=== PATIENT | male | born 1965 | race Caucasian/White ===

== ENCOUNTER 2016-11-18 15:47 | Observation (INO) | payer MEDICAID ==
[2016-11-18] MEDS ORDERED: Bacitracin Oint 1 GM U/D Packet TOP ONE (16:59)
[2016-11-18] MEDS ORDERED: cefTRIAXone 1 GM in Sodium Chloride 0.9% 50 ML IV ONE (18:07)
[2016-11-18] MEDS ORDERED: HYDROmorphone 0.5 MG/0.5 ML Syringe IVPUSH ONE (18:07)
--- NOTE | 2016-11-18 18:44 | EDM.PDOC ---
ED HPI GENERAL MEDICAL PROBLEM - General Chief Complaint: Laceration Stated Complaint: HEAD INJURY Time Seen by Provider: 11/18/16 16:10 Source of Information: Reports: Patient, Family History Limitations: Reports: No Limitations - History of Present Illness INITIAL COMMENTS - FREE TEXT/NARRATIVE: 51-year-old male got struck hard on the forehead by a a volleyball pole while he was mowing the lawn. He has a stellate laceration in the middle of his forehead, did not lose consciousness but feels a pressure behind his eyes, especially the left eye. He feels like he has to work to "focus his vision". He does not have pain with movement of the eyes. He has no nausea or vomiting. He is starting to develop some neck stiffness. He has no injuries to the chest abdomen or extremities. Onset: Sudden Duration: Hour(s): (Within the last hour) Severity: Moderate Associated Symptoms: Reports: Headaches. Denies: Confusion, Cough, Malaise, Nausea/Vomiting, Shortness of Breath, Weakness headache Pain Score (Numeric/FACES): 2 - Related Data Allergies Allergy/AdvReac Type Severity Reaction Status Date / Time Penicillins Allergy Hives Verified 11/18/16 16:04 Home Meds: Home Meds NK [No Known Home Meds] 11/18/16 [History] Past Medical History Cardiovascular History: Reports: Arrhythmia, Other (See Below) Other Cardiovascular History: hereditary paroxysmal "flutter" - Past Surgical History HEENT Surgical History: Reports: Tonsillectomy Musculoskeletal Surgical History: Reports: Shoulder Surgery, Other (See Below) Other Musculoskeletal Surgeries/Procedures:: knee repair Social & Family History - Tobacco Use Smoking Status *Q: Never Smoker - Caffeine Use Caffeine Use: Reports: Coffee - Alcohol Use Days Per Week of Alcohol Use: 1 Number of Drinks Per Day: 1 Total Drinks Per Week: 1 - Recreational Drug Use Recreational Drug Use: No ED ROS GENERAL - Review of Systems Review Of Systems: See Below Constitutional: Denies: Fever, Chills HEENT: Reports: Other (See HPI) Endocrine: Reports: No Symptoms GI/Abdominal: Denies: Nausea, Vomiting Musculoskeletal: Reports: Neck Pain Skin: Reports: Bruising (some bruising developing around the left eye, a stellate laceration on his forehead) Neurological: Reports: Headache Psychiatric: Reports: No Symptoms ED EXAM, SKIN/RASH Exam: See Below Exam Limited By: No Limitations General Appearance: Alert, No Apparent Distress Eye Exam: Left Eye: Periorbital Changes (Some ecchymosis developing around the left eye), Bilateral Eye: EOMI Ears: Normal TMs Nose: No: Nasal Tenderness Throat/Mouth: Normal Inspection Head: Other (Patient has a 4 cm stellate laceration in the middle of his forehead) Neck: Other (Some paracervical muscle tenderness is developing to palpation) Respiratory/Chest: No Respiratory Distress, Lungs Clear Cardiovascular: Regular Rate, Rhythm Extremities: Normal Inspection Neurological: Alert, Oriented, No Motor/Sensory Deficits Psychiatric: Normal Affect, Normal Mood Course - Vital Signs Last Recorded V/S: Last Vital Signs Temp 96.9 F 11/19/16 07:30 Pulse 56 L 11/19/16 07:30 Resp 14 11/19/16 07:30 BP 101/56 L 11/19/16 07:30 Pulse Ox 97 11/19/16 07:30 - Orders/Labs/Meds Orders: Active Orders 24 hr Category Date Time Status Soft Diet [DIET] Diet 11/18/16 Dinner Active Cervical Spine wo Cont [CT] Stat Exams 11/18/16 19:29 Taken Head wo Cont [CT] Stat Exams 11/18/16 16:21 Taken Max Facial Sinus wo Cont [CT] Stat Exams 11/18/16 16:21 Taken Sodium Chloride 0.9% [Normal Saline] 1,000 ml Med 11/18/16 18:15 Active IV ASDIRECTED Medication Orders Acetaminophen (Tylenol) 650 mg PO Q4H PRN PRN Reason: analgesia/fever Cyclobenzaprine HCl (Flexeril) 10 mg PO Q8H PRN PRN Reason: Muscle Spasm Diphenhydramine HCl (Benadryl) 25 mg PO Q4H PRN PRN Reason: Itching Hydromorphone HCl (Dilaudid) 1 mg IVPUSH Q2H PRN PRN Reason: Pain (severe 7-10) Last Admin: 11/19/16 10:13 Dose: 1 mg Admin: 11/18/16 22:50 Dose: 1 mg Sodium Chloride (Normal Saline) 1,000 mls @ 150 mls/hr IV ASDIRECTED NIRAV Last Admin: 11/19/16 07:46 Dose: 150 mls/hr Infusion: 11/19/16 07:46 Dose: 150 mls/hr Admin: 11/19/16 01:44 Dose: 150 mls/hr Infusion: 11/19/16 01:40 Dose: 150 mls/hr Admin: 11/18/16 18:59 Dose: 150 mls/hr Ceftriaxone Sodium 1 gm/ (Sodium Chloride) 50 mls @ 100 mls/hr IV Q24H NIRAV Oxycodone/Acetaminophen (Percocet 325-5 Mg) 1 - 2 tab PO Q4H PRN PRN Reason: Pain Last Admin: 11/18/16 21:55 Dose: 2 tab Zolpidem Tartrate (Ambien) 5 mg PO BEDTIME PRN PRN Reason: Insomnia Last Admin: 11/19/16 00:20 Dose: 5 mg Meds: Medications Generic Name Dose Route Start Last Admin Trade Name Freq PRN Reason Stop Dose Admin Acetaminophen 650 mg 11/18/16 20:39 Tylenol PO Q4H PRN analgesia/fever Cyclobenzaprine HCl 10 mg 11/18/16 20:39 Flexeril PO Q8H PRN Muscle Spasm Diphenhydramine HCl 25 mg 11/19/16 10:41 Benadryl PO Q4H PRN Itching Hydromorphone HCl 1 mg 11/18/16 20:39 11/19/16 10:13 Dilaudid IVPUSH 1 mg Q2H PRN Administration Pain (severe 7-10) Sodium Chloride 1,000 mls @ 150 mls/hr 11/18/16 18:15 11/19/16 07:46 Normal Saline IV 150 mls/hr ASDIRECTED NIRAV Administration Ceftriaxone Sodium 1 gm/ 50 mls @ 100 mls/hr 11/19/16 18:00 Sodium Chloride IV Q24H NIRAV Oxycodone/Acetaminophen 1 - 2 tab 11/18/16 20:39 11/18/16 21:55 Percocet 325-5 Mg PO 2 tab Q4H PRN Administration Pain Zolpidem Tartrate 5 mg 11/18/16 20:39 11/19/16 00:20 Ambien PO 5 mg BEDTIME PRN Administration Insomnia Discontinued Medications Generic Name Dose Route Start Last Admin Trade Name Freq PRN Reason Stop Dose Admin Bacitracin 1 dose 11/18/16 16:59 11/18/16 17:04 Bacitracin Oint 1 Gm TOP 11/18/16 17:00 1 dose ONETIME ONE Administration Diphenhydramine HCl Confirm 11/19/16 03:18 11/19/16 10:04 Benadryl Administered 11/19/16 03:19 Not Given Dose 25 mg .ROUTE .STK-MED ONE Hydromorphone HCl 0.5 mg 11/18/16 18:07 11/18/16 18:34 Dilaudid IVPUSH 11/18/16 18:08 0.5 mg ONETIME ONE Administration Hydromorphone HCl 1 mg 11/18/16 19:28 11/18/16 19:51 Dilaudid IVPUSH 11/18/16 19:29 1 mg ONETIME ONE Administration Ceftriaxone Sodium 1 gm/ 50 mls @ 100 mls/hr 11/18/16 18:07 11/18/16 18:35 Sodium Chloride IV 11/18/16 18:36 100 mls/hr ONETIME ONE Administration Lidocaine HCl 5 ml 11/18/16 16:59 11/18/16 17:04 Xylocaine-Mpf 1% INJECT 11/18/16 17:00 5 ml ONETIME ONE Administration Ondansetron HCl 4 mg 11/18/16 19:28 11/18/16 19:49 Zofran IVPUSH 11/18/16 19:29 4 mg ONETIME ONE Administration - Re-Assessments/Exams Free Text/Narrative Re-Assessment/Exam: 11/18/16 18:42 The laceration was infiltrated with lidocaine and 5 5-0 Ethilon sutures were used to close the wound. The head and facial bones were CT which revealed a frontal sinus fracture with extension into the frontal calvarium with a small amount of pneumocephalus. An IV was initiated, the patient was given 1 g of Rocephin and after discussion of his findings with neurosurgery it was recommended he be admitted for pain control and observation with a repeat CT scan tomorrow. Patient was in agreement with this plan. Departure - Departure Time of Disposition: 19:43 Disposition: Admitted As Inpatient 67 Condition: Fair Clinical Impression: Pneumocephalus, traumatic Laceration of forehead Qualifiers: Encounter type: initial encounter Qualified Code(s): S01.81XA - Laceration without foreign body of other part of head, initial encounter Frontal sinus fracture Qualifiers: Encounter type: initial encounter Fracture type: open Qualified Code(s): S02.19XB - Other fracture of base of skull, initial encounter for open fracture - Discharge Information - My Orders Last 24 Hours: My Active Orders 11/18/16 16:21 Head wo Cont [CT] Stat Max Facial Sinus wo Cont [CT] Stat 11/18/16 18:15 Sodium Chloride 0.9% [Normal Saline] 1,000 ml IV ASDIRECTED - Assessment/Plan Last 24 Hours: My Active Orders 11/18/16 16:21 Head wo Cont [CT] Stat Max Facial Sinus wo Cont [CT] Stat 11/18/16 18:15 Sodium Chloride 0.9% [Normal Saline] 1,000 ml IV ASDIRECTED
[2016-11-18] MEDS: Sodium Chloride 0.9% 1,000 ML IV SCH (18:59)
[2016-11-18] MEDS ORDERED: HYDROmorphone 1 MG/ML Syringe IVPUSH ONE (19:28)
[2016-11-18] MEDS ORDERED: Ondansetron 4 MG/2 ML SDV IVPUSH ONE (19:28)
[2016-11-18] MEDS ORDERED: Acetaminophen 325 MG Tab PO PRN (20:39)
[2016-11-18] MEDS ORDERED: Acetaminophen/oxyCODONE 325-5 MG Tab PO PRN (20:39)
[2016-11-18] MEDS ORDERED: Cyclobenzaprine 10 MG Tab PO PRN (20:39)
[2016-11-18] MEDS: HYDROmorphone 1 MG/ML Syringe IVPUSH PRN (22:50)
--- NOTE | 2016-11-18 23:49 | PCM.HP ---
H&P History of Present Illness - General Admit Problem/Dx: Admission Diagnosis/Problem Admission Diagnosis/Problem Fracture of bone Source of Information: Patient, EMS, RN History Limitations: Reports: No Limitations - History of Present Illness Initial Comments - Free Text/Narative: 51-year-old male got struck hard on the forehead by a a volleyball pole while he was mowing the lawn. He has a stellate laceration in the middle of his forehead, did not lose consciousness but feels a pressure behind his eyes, especially the left eye. He feels like he has to work to "focus his vision". He does not have pain with movement of the eyes. He has no nausea or vomiting. He is starting to develop some neck stiffness. He has no injuries to the chest abdomen or extremities. Onset: Sudden Duration: Hour(s): (Within the last hour) Severity: Moderate Associated Symptoms: Reports: Headaches. Denies: Confusion, Cough, Malaise, Nausea/Vomiting, Shortness of Breath, Weakness The laceration was infiltrated with lidocaine and 5 5-0 Ethilon sutures were used to close the wound. The head and facial bones were CT which revealed a frontal sinus fracture with extension into the frontal calvarium with a small amount of pneumocephalus. An IV was initiated, the patient was given 1 g of Rocephin and after discussion of his findings with neurosurgery it was recommended he be admitted for pain control and observation with a repeat CT scan tomorrow. Patient was in agreement with this plan. Onset of Symptoms: Reports: Sudden Duration of Symptoms: Reports: Hour(s):, Constant Location: Reports: Head, Face, Neck Quality: Reports: Sharp, Throbbing Severity: Moderate (pain controlled with IV dilaudid) Improves with: Reports: Medication Worsens with: Reports: Movement Context: Reports: Trauma Associated Symptoms: Reports: Headaches, Nausea/Vomiting headache Pain Score (Numeric/FACES): 4 - Related Data Allergies/Adverse Reactions: Allergies Allergy/AdvReac Type Severity Reaction Status Date / Time Penicillins Allergy Hives Verified 11/18/16 16:04 Home Medications: Home Meds NK [No Known Home Meds] 11/18/16 [History] Past Medical History Cardiovascular History: Reports: Arrhythmia, Other (See Below) Other Cardiovascular History: hereditary paroxysmal "flutter" - Infectious Disease History Infectious Disease History: Reports: Influenza - Past Surgical History HEENT Surgical History: Reports: Tonsillectomy Musculoskeletal Surgical History: Reports: Shoulder Surgery, Other (See Below) Other Musculoskeletal Surgeries/Procedures:: knee repair Social & Family History - Family History Cardiac: Reports: Arrhythmia Oncologic: Reports: Breast - Tobacco Use Smoking Status *Q: Never Smoker Second Hand Smoke Exposure: No - Caffeine Use Caffeine Use: Reports: Coffee, Soda, Tea - Alcohol Use Days Per Week of Alcohol Use: 2 Number of Drinks Per Day: 1 Total Drinks Per Week: 2 Date of Last Drink: 11/16/16 - Recreational Drug Use Recreational Drug Use: No H&P Review of Systems - Review of Systems: Review Of Systems: See Below General: Reports: Other (head and facial pain) HEENT: Reports: Eye Pain (left eye and cheek painful, bruising and edema), Headaches, Other (neck pain acute on chronic) Pulmonary: Reports: No Symptoms Cardiovascular: Reports: No Symptoms Gastrointestinal: Reports: Nausea (from head injury and pain) Genitourinary: Reports: No Symptoms Musculoskeletal: Reports: Neck Pain Skin: Reports: Bruising, Erythema, Change in Color Neurological: Reports: Headache Hematologic/Lymphatic: Reports: No Symptoms Immunologic: Reports: No Symptoms Exam - Exam Exam: See Below - Vital Signs Vital Signs: Last Vital Signs Temp 36.3 C 11/18/16 23:22 Pulse 62 11/18/16 23:22 Resp 18 11/18/16 23:22 BP 109/62 11/18/16 23:33 Pulse Ox 99 11/18/16 23:22 Weight: 77.196 kg - Exam General: Alert, Oriented, Cooperative, Sedated HEENT: PERRLA, Mucosa Moist & [place], Nares Patent, Posterior Pharynx Clear, Pupils Equal, Pupils Reactive, TMs Clear, Other (bilateral bruising of eyes with left eye edema,bruing and pain) Neck: Supple, Trachea Midline, 2 Lungs: Clear to Auscultation, Normal Respiratory Effort Cardiovascular: Regular Rate, Regular Rhythm GI/Abdominal Exam: Normal Bowel Sounds, Soft, Non-Tender, No Organomegaly, No Distention, No Abnormal Bruit, No Mass, Pelvis Stable (Male) Exam: Deferred Rectal (Males) Exam: Deferred Back Exam: Normal Inspection Extremities: Normal Inspection, Normal Range of Motion, Non-Tender, No Pedal Edema, Normal Capillary Refill Skin: Other (forehead with laceration repair,bandage in place. ) Neurological: Cranial Nerves Intact, Reflexes Equal Bilateral Neuro Extensive - Mental Status: Alert, Oriented x3, Normal Mood/Affect, Normal Cognition Neuro Extensive - Motor, Sensory, Reflexes: CN II-XII Intact, Normal Gait, Normal Reflexes Psychiatric: Alert, Normal Affect, Normal Mood *Q Meaningful Use (ADM) - VTE *Q VTE Criteria *Q: - Stroke *Q Stroke Criteria *Q: - AMI *Q AMI Criteria *Q: - Problem List (1) Frontal sinus fracture SNOMED Code(s): 67155781 ICD Code: S02.19XA - OTH FRACTURE OF BASE OF SKULL, INIT FOR CLOS FX Status : Acute Priority: High Current Visit: Yes Qualifiers: Encounter type: initial encounter Fracture type: open Qualified Code(s): S02.19XB - Other fracture of base of skull, initial encounter for open fracture (2) Laceration of forehead SNOMED Code(s): 965806001 ICD Code: S01.81XA - LACERATION W/O FOREIGN BODY OF OTH PART OF HEAD, INIT ENCNTR Status: Acute Priority: High Current Visit: Yes Qualifiers: Encounter type: initial encounter Qualified Code(s): S01.81XA - Laceration without foreign body of other part of head, initial encounter (3) Pneumocephalus, traumatic SNOMED Code(s): 70450154, 85395764, 28629471, [id number], [id number] ICD Code: G93.89 - OTHER SPECIFIED DISORDERS OF BRAIN Status: Acute Priority: High Current Visit: Yes Problem List Initiated/Reviewed/Updated: Yes Orders Last 24hrs: Active Orders 24 hr Category Date Time Status Patient Status [ADT] Routine ADT 11/18/16 20:39 Active Bedrest Bathroom Privileges [RC] ASDIRECTED Care 11/18/16 20:39 Active Intake and Output [RC] PER UNIT ROUTINE Care 11/18/16 20:39 Active Neurological Monitoring [RC] Q4HR Care 11/18/16 20:39 Active Notify Provider Vital Signs [RC] ASDIRECTED Care 11/18/16 20:39 Active Oxygen Therapy [RC] PRN Care 11/18/16 20:39 Active Vital Signs [RC] Q4H Care 11/18/16 20:39 Active Spiritual Care Follow Up [CONS] Routine Cons 11/18/16 20:39 Active Full Liquid Diet [DIET] Diet 11/18/16 Breakfast Ordered Head wo Cont [CT] Stat Exams 11/19/16 09:10 Ordered Acetaminophen [Tylenol] Med 11/18/16 20:39 Active 650 mg PO Q4H PRN Acetaminophen/oxyCODONE [Percocet 325-5 MG] Med 11/18/16 20:39 Active 1 - 2 tab PO Q4H PRN Cyclobenzaprine [Flexeril] Med 11/18/16 20:39 Active 10 mg PO Q8H PRN HYDROmorphone [Dilaudid] Med 11/18/16 20:39 Active 1 mg IVPUSH Q2H PRN Zolpidem [Ambien] Med 11/18/16 20:39 Active 5 mg PO BEDTIME PRN cefTRIAXone [Rocephin] 1 gm Med 11/19/16 18:00 Active Sodium Chloride 0.9% [Normal Saline] 50 ml IV Q24H Medication Orders Acetaminophen (Tylenol) 650 mg PO Q4H PRN PRN Reason: analgesia/fever Cyclobenzaprine HCl (Flexeril) 10 mg PO Q8H PRN PRN Reason: Muscle Spasm Hydromorphone HCl (Dilaudid) 1 mg IVPUSH Q2H PRN PRN Reason: Pain (severe 7-10) Last Admin: 11/18/16 22:50 Dose: 1 mg Sodium Chloride (Normal Saline) 1,000 mls @ 150 mls/hr IV ASDIRECTED NIRAV Last Admin: 11/18/16 18:59 Dose: 150 mls/hr Ceftriaxone Sodium 1 gm/ (Sodium Chloride) 50 mls @ 100 mls/hr IV Q24H NIRAV Oxycodone/Acetaminophen (Percocet 325-5 Mg) 1 - 2 tab PO Q4H PRN PRN Reason: Pain Last Admin: 11/18/16 21:55 Dose: 2 tab Zolpidem Tartrate (Ambien) 5 mg PO BEDTIME PRN PRN Reason: Insomnia Assessment/Plan Comment:: ASSESSMENT / PLAN - 51-year-old male got struck hard on the forehead by a a volleyball pole while he was mowing the lawn. He has a stellate laceration in the middle of his forehead, did not lose consciousness but feels a pressure behind his eyes, especially the left eye. He feels like he has to work to "focus his vision". He does not have pain with movement of the eyes. He has no nausea or vomiting. He is starting to develop some neck stiffness. He has no injuries to the chest abdomen or extremities. Onset: Sudden Duration: Hour(s): (Within the last hour) Severity: Moderate Associated Symptoms: Reports: Headaches. Denies: Confusion, Cough, Malaise, Nausea/Vomiting, Shortness of Breath, Weakness The laceration was infiltrated with lidocaine and 5 5-0 Ethilon sutures were used to close the wound. The head and facial bones were CT which revealed a frontal sinus fracture with extension into the frontal calvarium with a small amount of pneumocephalus. An IV was initiated, the patient was given 1 g of Rocephin and after discussion of his findings with neurosurgery it was recommended he be admitted for pain control and observation with a repeat CT scan tomorrow. Patient was in agreement with this plan. Plan -Admit to [address] [place] [address] for further monitoring -neuro check every 4 hours -IV fluids for rehydration NS at 125 mL per hour -medicate for pain -Advise to notify nurses of any chest pain or other symptoms -Order for a Head CT without contrast in a.m. -And a.m. labs: CBC, BMP Maintenance issues -Nutrition: soft full liquid diet -James catheter not indicated at this time -DVT: contraindicated -GI Prophalaxis; Protonix 40mg daily -consult Spiritual CODE STATUS: Full Admission status: Admit to Observation -I expect this patient to stay less than 24 hours, not to exceed 96 hours for evaluation and management of this problem. Disposition; home with family Primary care provider: not established Hospitalist; Dr. Orta
[2016-11-19] MEDS: Zolpidem 5 MG Tab PO PRN ×2 (00:20→22:02)
[2016-11-19] MEDS: Sodium Chloride 0.9% 1,000 ML IV SCH ×2 (01:44→07:46)
[2016-11-19] MEDS ORDERED: diphenhydrAMINE 25 MG Cap ONE (03:18)
[2016-11-19] MEDS: HYDROmorphone 1 MG/ML Syringe IVPUSH PRN (10:13)
[2016-11-19] MEDS ORDERED: diphenhydrAMINE 25 MG Cap PO PRN (10:41)
--- NOTE | 2016-11-19 11:01 | CT ---
Head wo Cont Total DLP 761 mGycm. INDICATION: repeat CT in am COMPARISON: CT 11/18/2016. FINDINGS: Mild increase in soft tissue swelling overlying the anterior frontal bones. Again demonstra ac is a nondisplaced fracture of the left frontal calvarium just to the left of midline that extends through the anterior and posterior lopez of the left frontal sinus. There is minimal associated pneu mocephalus and acute extra-axial blood products just deep to the fracture overlying the left frontal lobe inferiorly. These are unchanged since yesterday. Mild mucosal thickening left ethmoid sinuses. E xam otherwise unremarkable. IMPRESSION: Slight increase in soft tissue swelling overlying the anterior frontal bones. Exam otherw ise not significantly changed.
[2016-11-19] MEDS ORDERED: HYDROmorphone 0.5 MG/0.5 ML Syringe IVPUSH PRN (11:55)
--- NOTE | 2016-11-19 13:40 | PCM.PN ---
- General Info Date of Service: 11/19/16 Functional Status: Reports: Pain Controlled, Tolerating Diet, Urinating - Review of Systems General: Denies: Fever, Chills Pulmonary: Reports: No Symptoms Cardiovascular: Reports: No Symptoms Gastrointestinal: Reports: No Symptoms Neurological: Reports: Headache. Denies: Confusion, Dizziness, Numbness, Trouble Speaking, Weakness, Gait Disturbance Psychiatric: Denies: Confusion, Agitation, Hallucinations Systems Review Comment:: Mr. Mcleod is a 51-year-old gentleman who was admitted through the emergency department last night after he experienced a severe headache injury resulting in a frontal bone fracture and small pneumocephalus. He is had one follow-up CT scan done this morning that shows no significant change in the degree of pneumocephalus and no evidence of significant bleeding. He denies any discharge of CSF from the nose or ears. He has been neurologically intact, but does continue to have a mild to moderate headache. CT scan from this morning is been reviewed by the neurosurgeon pathology transcriptionist in [place], there is no appreciable change from admission. He is recommended that the patient be monitored in additional 24 hours and have a third CT scan of the head in the morning. - Patient Data Vitals - Most Recent: Last Vital Signs Temp 97.5 F 11/19/16 11:30 Pulse 50 L 11/19/16 11:30 Resp 16 11/19/16 11:30 BP 96/64 11/19/16 11:30 Pulse Ox 98 11/19/16 11:30 Weight - Most Recent: 170 lb 3.009 oz I&O - Last 24 Hours: Intake & Output 11/18/16 11/19/16 11/19/16 22:59 06:59 14:59 Intake Total 240 460 600 Output Total 100 2200 Balance 240 360 -1600 Med Orders - Current: Current Medications Acetaminophen (Tylenol) 650 mg PO Q4H PRN PRN Reason: analgesia/fever Hydrocodone Bitart/Acetaminophen ([place] 325-5 Mg) 1 - 2 tab PO Q4H PRN PRN Reason: Pain Cyclobenzaprine HCl (Flexeril) 10 mg PO Q8H PRN PRN Reason: Muscle Spasm Diphenhydramine HCl (Benadryl) 25 mg PO Q4H PRN PRN Reason: Itching Last Admin: 11/19/16 03:17 Dose: 25 mg Hydromorphone HCl (Dilaudid) 0.5 mg IVPUSH Q2H PRN PRN Reason: Pain (severe 7-10) Cefazolin Sodium 1 gm/ Sodium (Chloride) 50 mls @ 200 mls/hr IV Q8HR [facility] Zolpidem Tartrate (Ambien) 5 mg PO BEDTIME PRN PRN Reason: Insomnia Last Admin: 11/19/16 00:20 Dose: 5 mg Discontinued Medications Bacitracin (Bacitracin Oint 1 Gm) 1 dose TOP ONETIME ONE Stop: 11/18/16 17:00 Last Admin: 11/18/16 17:04 Dose: 1 dose Diphenhydramine HCl (Benadryl) Confirm Administered Dose 25 mg .ROUTE .STK-MED ONE Stop: 11/19/16 03:19 Last Admin: 11/19/16 10:04 Dose: Not Given Hydromorphone HCl (Dilaudid) 0.5 mg IVPUSH ONETIME ONE Stop: 11/18/16 18:08 Last Admin: 11/18/16 18:34 Dose: 0.5 mg Hydromorphone HCl (Dilaudid) 1 mg IVPUSH ONETIME ONE Stop: 11/18/16 19:29 Last Admin: 11/18/16 19:51 Dose: 1 mg Hydromorphone HCl (Dilaudid) 1 mg IVPUSH Q2H PRN PRN Reason: Pain (severe 7-10) Last Admin: 11/19/16 10:13 Dose: 1 mg Sodium Chloride (Normal Saline) 1,000 mls @ 150 mls/hr IV ASDIRECTED [facility] Last Admin: 11/19/16 07:46 Dose: 150 mls/hr Ceftriaxone Sodium 1 gm/ (Sodium Chloride) 50 mls @ 100 mls/hr IV ONETIME ONE Stop: 11/18/16 18:36 Last Admin: 11/18/16 18:35 Dose: 100 mls/hr Ceftriaxone Sodium 1 gm/ (Sodium Chloride) 50 mls @ 100 mls/hr IV Q24H [facility] Lidocaine HCl (Xylocaine-Mpf 1%) 5 ml INJECT ONETIME ONE Stop: 11/18/16 17:00 Last Admin: 11/18/16 17:04 Dose: 5 ml Ondansetron HCl (Zofran) 4 mg IVPUSH ONETIME ONE Stop: 11/18/16 19:29 Last Admin: 11/18/16 19:49 Dose: 4 mg Oxycodone/Acetaminophen (Percocet 325-5 Mg) 1 - 2 tab PO Q4H PRN PRN Reason: Pain Last Admin: 11/18/16 21:55 Dose: 2 tab - Exam General: Alert, Oriented, Cooperative, Mild Distress Lungs: Clear to Auscultation, Normal Respiratory Effort Cardiovascular: Regular Rate, Regular Rhythm, No Murmurs GI/Abdominal Exam: Normal Bowel Sounds, Soft, Non-Tender, No Distention Extremities: Normal Inspection, No Pedal Edema Skin: Warm, Dry, Intact Neurological: No New Focal Deficit, Normal Speech, Normal Tone, Strength Equal Bilateral, Sensation Intact, Cranial Nerves Intact - Problem List Review Problem List Initiated/Reviewed/Updated: Yes - My Orders Last 24 Hours: My Active Orders 11/19/16 10:41 diphenhydrAMINE [Benadryl] 25 mg PO Q4H PRN 11/19/16 11:54 Convert IV to Saline Lock [OM.PC] Routine 11/19/16 11:55 Acetaminophen/HYDROcodone [[place] 325-5 MG] 1 - 2 tab PO Q4H PRN HYDROmorphone [Dilaudid] 0.5 mg IVPUSH Q2H PRN 11/19/16 14:00 ceFAZolin [Ancef] 1 gm Sodium Chloride 0.9% [Normal Saline] 50 ml IV Q8HR 11/19/16 Lunch GI Soft Low Fiber [Soft Diet] [DIET] 11/20/16 05:00 BASIC METABOLIC PANEL,BMP [CHEM] Timed CBC WITH AUTO DIFF [HEME] Timed 11/20/16 08:00 Head wo Cont [CT] Stat - Plan Plan:: ASSESSMENT / PLAN CLOSED HEAD INJURY WITH SKULL FRACTURE AND PNEUMOCEPHALUS-stable and doing well this morning. Continues to have residual headache but it's not been increasing in intensity, no focal neurologic deficits -neuro check every 4 hours -saline lock IV -medicate for pain -repeat CT scan of head in a.m. Maintenance issues -Nutrition: soft low residue diet -James catheter not indicated at this time -DVT: contraindicated -GI Prophalaxis; Protonix 40mg daily -consult Spiritual CODE STATUS: Full Admission status: Admit to Observation Disposition; home with family Primary care provider: not established Hospitalist; Dr. Orta
[2016-11-19] MEDS: ceFAZolin 1 GM in Premix Bag 1 BAG IV SCH ×2 (15:17→21:45)
[2016-11-19] MEDS: Acetaminophen/HYDROcodone 325-5 MG Tab PO PRN (15:27)
[2016-11-19] MEDS ORDERED: cefTRIAXone 1 GM in Sodium Chloride 0.9% 50 ML IV SCH (18:00)
[2016-11-20] MEDS: Acetaminophen/HYDROcodone 325-5 MG Tab PO PRN (04:06)
[2016-11-20] MEDS: ceFAZolin 1 GM in Premix Bag 1 BAG IV SCH ×2 (06:08→13:06)
--- NOTE | 2016-11-20 09:02 | CT ---
Head wo Cont Total DLP 788 mGycm. INDICATION: FU of pneumocephalus COMPARISON: CT head 11/19/2016. FINDINGS: Stable left frontal bone fracture. No change in the small amount of pneumocephalus and high -density subacute extra-axial blood products adjacent to the anteroinferior left frontal lobe. No mas s effect. Soft tissue swelling overlying the left frontal bone. Mild paranasal sinus disease. Exam ot herwise negative. IMPRESSION: Stable exam.
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
[2016-11-20 15:47] VITALS: BP 119/74
== END 2016-11-20 14:10 | disposition home or self-care (01) ==
LOC: JP.ED 15:47 → JP.MS 19:47
PROVIDERS: ADMIT Hospitalist; ATTEND Hospitalist
DX: S02.19XB Other fracture of base of skull, initial encounter for open fracture (principal); G93.89 Other specified disorders of brain; Z88.0 Allergy status to penicillin; Z98.890 Other specified postprocedural states; Z79.899 Other long term (current) drug therapy; W21.06XA Struck by volleyball, initial encounter
CPT/HCPCS: 12011; 12013; 36415; 70450; 70486; 72125; 80048; 85025; 96361; 96365; 96366; 96375; 96376; 99283; 99284; A9270; G0378; J0690; J0696; J1170; J2405; J7040; J7050; 99217; 99219; 99224

== ENCOUNTER 2017-07-21 07:41 | Day surgery (SDC) | payer MEDICAID ==
[2017-07-21] MEDS ORDERED: Lactated Ringers 1,000 ML IV SCH (08:15)
[2017-07-21] MEDS ORDERED: Propofol 200 MG/20 ML SDV ONE ×2 (09:12→09:45)
[2017-07-21] MEDS ORDERED: Midazolam 1 MG/ML 2 ML SDV ONE (09:12)
[2017-07-21] MEDS ORDERED: fentaNYL 100 MCG/2 ML SDV ONE (09:12)
[2017-07-21 11:47] VITALS: BP 80/57
--- NOTE | 2017-07-21 12:41 | OR ---
DATE OF PROCEDURE: 07/21/2017 PREOPERATIVE DIAGNOSIS: Colon cancer screening. POSTOPERATIVE DIAGNOSIS: Unremarkable colonoscopy. PROCEDURE PERFORMED: Colonoscopy to the cecum. ANESTHESIA: IV anesthesia with monitored anesthesia care. INDICATION: This 51-year-old white male is referred for a colonoscopy for colon cancer screening. He has never had a colonoscopic exam. I counseled him for the procedure including risks and alternatives, and he gave his informed consent to proceed. DESCRIPTION OF PROCEDURE: The patient was placed in the left lateral decubitus position. IV anesthesia was administered by the Anesthesia Service. Time-out was held. A rectal exam was performed, which was unremarkable. The flexible video Olympus colonoscope was introduced through his anus, up his rectum, and out his colon, all the way to the cecum. Once the cecum was reached, the scope was slowly withdrawn, examining the mucosa throughout. No mucosal abnormalities were noted. The scope was retroflexed in the rectum with the distal rectum appearing unremarkable. The scope was straightened and removed. He tolerated the procedure well. Randolph Roa MD /[id number]
== END 2017-07-21 11:45 | disposition home or self-care (01) ==
LOC: JP.SDS 07:41
PROVIDERS: ATTEND Surgery
DX: Z12.11 Encounter for screening for malignant neoplasm of colon (principal); Z88.0 Allergy status to penicillin
CPT/HCPCS: 45378; J2250; J2704; J3010; J7120

== ENCOUNTER 2019-02-02 18:12 | Emergency (ER) | payer MEDICAID ==
[2019-02-02 18:32] VITALS: BP 148/85; PULSE 64
--- NOTE | 2019-02-02 18:32 | EDM.PDOC ---
ED HPI GENERAL MEDICAL PROBLEM - General Chief Complaint: General Stated Complaint: FATIGUE,HEAD PRESSURE Time Seen by Provider: 02/02/19 19:04 Source of Information: Reports: Patient History Limitations: Reports: No Limitations - History of Present Illness INITIAL COMMENTS - FREE TEXT/NARRATIVE: 53 years old male patient presented with chief complaint of pressure in his head. Has been going on for almost 2 weeks. Was seen in the clinic couple times in the last 2 weeks, had extensive workup, current back unremarkable. Stated it is worse tonight, intermittent feeling like dizzy or lightheaded. No syncopal episode. Symptom does not change with change in position, no orthostasis. Denies any focal weakness or numbness anywhere. Denies any headache or visual changes. Denies any chest pain or shortness breath or palpitation. Denies any cough or fever. Denies any nausea or vomiting. Denies any abdominal pain diarrhea or constipation. Denies any urinary symptom. History of chronic tendinitis, has been going on for 2 years. Slightly worse for the last 2 weeks. No earache or discharge. No change in his hearing. No sore throat or runny nose or congestion sinus pressure. Denies any neck pain or back pain. Denies any vertigo. Denies any gait instability. No loss of control of urine or stool. Has been drinking a lot for that lately. - Related Data Allergies Allergy/AdvReac Type Severity Reaction Status Date / Time Penicillins Allergy Hives Verified 10/28/17 00:52 Home Meds: Home Meds NK [No Known Home Meds] 10/28/17 [History] Past Medical History HEENT History: Reports: Impaired Vision Cardiovascular History: Reports: Arrhythmia, Other (See Below) Other Cardiovascular History: hereditary paroxysmal "flutter" Musculoskeletal History: Reports: Other (See Below) Other Musculoskeletal History: L elbo pain Neurological History: Reports: Concussion - Infectious Disease History Infectious Disease History: Reports: Mumps - Past Surgical History HEENT Surgical History: Reports: Tonsillectomy Cardiovascular Surgical History: Reports: None Neurological Surgical History: Reports: None Musculoskeletal Surgical History: Reports: Arthroscopic Knee, Shoulder Surgery, Other (See Below) Other Musculoskeletal Surgeries/Procedures:: knee repair, Left elbow spur removed Social & Family History - Family History Cardiac: Reports: Arrhythmia Oncologic: Reports: Breast - Caffeine Use Caffeine Use: Reports: Coffee, Soda ED ROS GENERAL - Review of Systems Review Of Systems: ROS reveals no pertinent complaints other than HPI. ED EXAM, GENERAL - Physical Exam Exam: See Below Exam Limited By: No Limitations General Appearance: Alert, WD/WN, No Apparent Distress Ears: Normal External Exam, Normal Canal, Hearing Grossly Normal, Normal TMs Ear Exam: Bilateral Ear: Auricle Normal, Canal Normal, TM normal Nose: Normal Inspection, Normal Mucosa, No Blood Throat/Mouth: Normal Inspection, Normal Lips, Normal Teeth, Normal Gums, Normal Oropharynx, Normal Voice, No Airway Compromise Head: Atraumatic, Normocephalic Neck: Normal Inspection, Supple, Non-Tender, Full Range of Motion Respiratory/Chest: No Respiratory Distress, Lungs Clear, Normal Breath Sounds, No Accessory Muscle Use, Chest Non-Tender Cardiovascular: Normal Peripheral Pulses, Regular Rate, Rhythm, No Edema, No Gallop, No JVD, No Murmur, No Rub GI/Abdominal: Normal Bowel Sounds, Soft, Non-Tender, No Organomegaly, No Distention, No Abnormal Bruit, No Mass Back Exam: Normal Inspection, Full Range of Motion, NT Extremities: Normal Inspection, Normal Range of Motion, Non-Tender, Normal Capillary Refill, No Pedal Edema Neurological: Alert, Oriented, CN II-XII Intact, Normal Cognition, Normal Gait, Normal Reflexes, No Motor/Sensory Deficits Psychiatric: Normal Affect, Normal Mood Skin Exam: Warm, Dry, Intact, Normal Color, No Rash Lymphatic: No Adenopathy Course - Vital Signs Last Recorded V/S: Last Vital Signs Temp 36.2 C 02/02/19 18:33 Pulse 64 02/02/19 18:33 Resp 16 02/02/19 18:33 BP 148/85 H 02/02/19 18:33 Pulse Ox 99 02/02/19 18:33 - Orders/Labs/Meds Orders: Active Orders 24 hr Category Date Time Status EKG Documentation Completion [RC] ASDIRECTED Care 02/02/19 19:02 Active EKG 12 Lead [EK] Urgent Ther 02/02/19 19:01 Ordered Labs: Laboratory Tests 02/02/19 02/02/19 02/02/19 Range/Units 19:10 19:10 19:10 WBC 6.8 (4.5-11.0) K/uL RBC 5.02 (4.30-5.90) M/uL Hgb 14.9 (12.0-15.0) g/dL Hct 43.7 (40.0-54.0) % MCV 87 (80-98) fL MCH 30 (27-31) pg MCHC 34 (32-36) % Plt Count 232 (150-400) K/uL Neut % (Auto) 65 (36-66) % Lymph % (Auto) 25 (24-44) % [place] % (Auto) 8 H (2-6) % Eos % (Auto) 2 (2-4) % Baso % (Auto) 1 (0-1) % PT 11.4 (9.5-12.0) sec INR 1.06 (0.80-1.20) Sodium 137 L (140-148) mmol/L Potassium 4.4 (3.6-5.2) mmol/L Chloride 102 (100-108) mmol/L Carbon Dioxide 29 (21-32) mmol/L Anion Gap 10.4 (5.0-14.0) mmol/L BUN 15 (7-18) mg/dL Creatinine 0.9 (0.8-1.3) mg/dL Est Cr Clr Drug Dosing 104.98 mL/min Estimated GFR (MDRD) > 60 (>60) Glucose 103 (74-106) mg/dL Lactic Acid (0.4-2.0) mmol/L Calcium 9.1 (8.5-10.1) mg/dL Magnesium 1.9 (1.8-2.4) mg/dL Total Bilirubin 0.5 (0.2-1.0) mg/dL AST 23 (15-37) U/L ALT 29 (12-78) U/L Alkaline Phosphatase 76 (46-116) U/L Troponin I < 0.017 (0.000-0.056) ng/mL Total Protein 7.1 (6.4-8.2) g/dL Albumin 4.1 (3.4-5.0) g/dL Globulin 3.0 (2.3-3.5) g/dL Albumin/Globulin Ratio 1.4 (1.2-2.2) 02/02/19 Range/Units 19:10 WBC (4.5-11.0) K/uL RBC (4.30-5.90) M/uL Hgb (12.0-15.0) g/dL Hct (40.0-54.0) % MCV (80-98) fL MCH (27-31) pg MCHC (32-36) % Plt Count (150-400) K/uL Neut % (Auto) (36-66) % Lymph % (Auto) (24-44) % [place] % (Auto) (2-6) % Eos % (Auto) (2-4) % Baso % (Auto) (0-1) % PT (9.5-12.0) sec INR (0.80-1.20) Sodium (140-148) mmol/L Potassium (3.6-5.2) mmol/L Chloride (100-108) mmol/L Carbon Dioxide (21-32) mmol/L Anion Gap (5.0-14.0) mmol/L BUN (7-18) mg/dL Creatinine (0.8-1.3) mg/dL Est Cr Clr Drug Dosing mL/min Estimated GFR (MDRD) (>60) Glucose (74-106) mg/dL Lactic Acid 0.8 (0.4-2.0) mmol/L Calcium (8.5-10.1) mg/dL Magnesium (1.8-2.4) mg/dL Total Bilirubin (0.2-1.0) mg/dL AST (15-37) U/L ALT (12-78) U/L Alkaline Phosphatase (46-116) U/L Troponin I (0.000-0.056) ng/mL Total Protein (6.4-8.2) g/dL Albumin (3.4-5.0) g/dL Globulin (2.3-3.5) g/dL Albumin/Globulin Ratio (1.2-2.2) Meds: Medications Discontinued Medications Generic Name Dose Route Start Last Admin Trade Name Freq PRN Reason Stop Dose Admin Sodium Chloride 1,000 mls @ 999 mls/hr 02/02/19 19:01 02/02/19 19:37 Normal Saline IV 02/02/19 20:01 999 mls/hr .BOLUS STA Administration Lidocaine HCl Confirm 02/02/19 19:19 02/02/19 19:27 Xylocaine-Mpf 1% Administered 02/02/19 19:20 Not Given Dose 5 ml .ROUTE .STK-MED ONE Lidocaine HCl 5 ml 02/02/19 19:28 02/02/19 19:29 Xylocaine-Mpf 1% INJECT 02/02/19 19:29 5 ml ONETIME ONE Administration - Radiology Interpretation Free Text/Narrative:: Patient was seen and examined shortly after arrival. Stable. Given 1 L normal saline bolus, EKG, lab and imaging reviewed with the patient. No significant acute abnormalities. Patient's symptoms markedly improved. At this point unclear etiology but no sign of CVA, meningitis, fatal arrhythmia or anything serious at this point. Patient was offered admission for monitoring and observation tonight and further workup. Patient refused admission and wanted to be discharged home. Advised to follow-up tomorrow with his primary doctor and schedule his MRI. Advised to come back for any worsening symptom or any concern. Patient agrees with the plan. Stable for discharge. Departure - Departure Time of Disposition: 21:29 Disposition: Home, Self-Care 01 Condition: Good Clinical Impression: Dizziness - Discharge Information *PRESCRIPTION DRUG MONITORING PROGRAM REVIEWED*: Not Applicable *COPY OF PRESCRIPTION DRUG MONITORING REPORT IN PATIENT DESI: Not Applicable Instructions: Vertigo, [id number], Near-Syncope, Dizziness, [id number]-[id number], Dizziness Referrals: Florencio Gann MD [Primary Care Provider] - Forms: ED Department Discharge - My Orders Last 24 Hours: My Active Orders 02/02/19 19:01 EKG 12 Lead [EK] Urgent 02/02/19 19:02 EKG Documentation Completion [RC] ASDIRECTED - Assessment/Plan Last 24 Hours: My Active Orders 02/02/19 19:01 EKG 12 Lead [EK] Urgent 02/02/19 19:02 EKG Documentation Completion [RC] ASDIRECTED Plan: Advised to follow-up tomorrow with his primary doctor and schedule his MRI. Advised to come back for any worsening symptom or any concern.
[2019-02-02] MEDS ORDERED: Sodium Chloride 0.9% 1,000 ML IV STA (19:01)
--- NOTE | 2019-02-02 19:45 | CRLCT ---
INDICATION: Dizziness TECHNIQUE: CT Head without i.v. contrast. COMPARISON: 11/20/2016 FINDINGS: CSF space: The ventricles are normal for age. Brain: No evidence of mass, acute infarction or hemorrhage is seen. No mass-effect or midline shift is seen. The brain parenchyma is otherwise normal in appearance with preservation of the sepulveda-white matter junction. Calvarium: The visualized paranasal sinuses are well aerated. The mastoid air cells are clear. The visualized orbits are grossly unremarkable. The calvarium is unremarkable in appearance with no fractures identified. IMPRESSION: 1. No evidence of acute infarction, intracranial hemorrhage, or mass-effect seen. Please note that all CT scans at this facility use dose modulation, iterative reconstruction, and/or weight-based dosing when appropriate to reduce radiation dose to as low as reasonably achievable. Dictated by: Stevie Gómez MD @ 02/02/2019 19:44:45 (Electronically Signed)
== END 2019-02-02 21:53 | disposition home or self-care (01) ==
LOC: JP.ED 18:12
DX: R42 Dizziness and giddiness (principal); Z88.0 Allergy status to penicillin
CPT/HCPCS: 36415; 70450; 80053; 83605; 83735; 84484; 85025; 85610; 93005; 96360; 96372; 99284; J2001; J7030

== ENCOUNTER 2019-04-27 13:47 | Emergency (ER) | payer MEDICAID ==
[2019-04-27 14:01] VITALS: BP 131/52; PULSE 57
[2019-04-27] MEDS ORDERED: Sodium Chloride 0.9% 1,000 ML IV SCH (14:30)
[2019-04-27] MEDS ORDERED: LORazepam 2 MG/ML SDV IVPUSH ONE (14:45)
--- NOTE | 2019-04-27 17:06 | ANES ---
DATE OF SERVICE: 04/27/2019 INDICATION: A 53-year-old gentleman in the emergency room with a headache. I was asked by Dr. Mcmahon to provide a blood patch epidural. This gentleman has a rather long complicated history of a head injury and was apparently doing okay, saw a chiropractor several months ago and after that started developing headaches and with a possible diagnosis of a CSF leak. In further workup for this, he had a myelogram 3 days ago and proceeded to have worse headaches and not severe photophobia, but if he would sit up, his headaches became excruciating to the point that he would occasionally faint. In procedure room, blood patch epidural was explained to him in detail. All questions were answered and a consent was signed. TECHNIQUE: He was placed in the sitting position. On examining his back, the matos of apparent point where he had his myelogram is extremely low. To me, it is in the top of the sacrum, so the only thing I can think is they took a rather steep angle as they did use fluoro to either go from the side in or steep angle to get through it at L5-S1. After a Betadine solution prep, the epidural was accomplished at what I believe is L5-S1. It was a rather steep up angle, good feel. No paresthesia, no CSF, no blood. Interestingly, there was no CSF that dripped out. The emergency room nurse then brisa 15 mL of whole blood from his right arm and I injected this through his epidural needle over approximately 1 minute. The needle was removed, he was placed supine. He tolerated the procedure well. We gave him 1 L of fluid before I arrived. We started another liter of fluid at this time. He will lay supine for 45 minutes. We will gradually set him up to 15 to 30 degrees. We will keep him for a total of 2 hours. He was counseled to closely on avoiding Valsalva maneuvers. He was explained what they are, what to do, how to avoid them, how to get up from a lying down position or from a sitting position, about exhaling as he gets up. Having explained all this to him while he was lying supine on the bed, he several times lifted his head up off the pillow, which is a Valsalva maneuver; so we will see how he does with this. Mateo Ramirez CRNA /[id number]
--- NOTE | 2019-04-27 17:21 | EDM.PDOC ---
ED HPI GENERAL MEDICAL PROBLEM - General Chief Complaint: Headache Stated Complaint: MIGRAINE Time Seen by Provider: 04/27/19 14:20 Source of Information: Reports: Patient History Limitations: Reports: No Limitations - History of Present Illness INITIAL COMMENTS - FREE TEXT/NARRATIVE: 53-year-old male had a myelogram done 3 days ago, and now has a persistent headache with standing up. No fevers or chills, no nausea or vomiting. He has been struggling with chronic malaise and fatigue. No visual complaints. Lying down he has almost no symptoms but when sitting or standing he almost passes out it so painful. He is extremely anxious. Duration: Day(s): (Symptoms for the last 2 or 3 days since his myelogram) Associated Symptoms: Reports: Headaches, Weakness. Denies: Confusion, Chest Pain, Cough, Diaphoresis - Related Data Allergies Allergy/AdvReac Type Severity Reaction Status Date / Time hydrocodone Allergy Itching Verified 04/27/19 14:03 Penicillins Allergy Hives Verified 10/28/17 00:52 Home Meds: Home Meds NK [No Known Home Meds] 10/28/17 [History] Past Medical History HEENT History: Reports: Impaired Vision Cardiovascular History: Reports: Arrhythmia, Other (See Below) Other Cardiovascular History: hereditary paroxysmal "flutter" Musculoskeletal History: Reports: Other (See Below) Other Musculoskeletal History: L elbo pain Neurological History: Reports: Concussion - Infectious Disease History Infectious Disease History: Reports: Mumps - Past Surgical History HEENT Surgical History: Reports: Tonsillectomy Cardiovascular Surgical History: Reports: None Neurological Surgical History: Reports: None Musculoskeletal Surgical History: Reports: Arthroscopic Knee, Shoulder Surgery, Other (See Below) Other Musculoskeletal Surgeries/Procedures:: knee repair, Left elbow spur removed Social & Family History - Family History Cardiac: Reports: Arrhythmia Oncologic: Reports: Breast - Tobacco Use Smoking Status *Q: Never Smoker - Caffeine Use Caffeine Use: Reports: Coffee - Recreational Drug Use Recreational Drug Use: No ED ROS GENERAL - Review of Systems Review Of Systems: See Below Constitutional: Reports: Malaise. Denies: Fever, Chills HEENT: Denies: Vision Change Respiratory: Denies: Shortness of Breath Cardiovascular: Denies: Chest Pain GI/Abdominal: Denies: Abdominal Pain, Nausea, Vomiting Skin: Reports: No Symptoms Neurological: Reports: Dizziness, Headache, Other (At times he feels pressure in his head) Psychiatric: Reports: Anxiety - Physical Exam Exam: See Below Exam Limited By: No Limitations General Appearance: Alert, No Apparent Distress, Anxious Eye Exam: Bilateral Eye: Normal Inspection Head Exam: Atraumatic Neck: Supple, Non-Tender Respiratory/Chest: No Respiratory Distress, Lungs Clear Neuro Exam (Abbreviated): Alert, Oriented, No Motor/Sensory Deficits Back Exam: Other (Very tiny puncture wounds and bruises are seen just above the sacrum from his recent procedure, no swelling or erythema) Course - Vital Signs Last Recorded V/S: Last Vital Signs Temp 97 F 04/27/19 14:01 Pulse 57 L 04/27/19 14:01 Resp 16 04/27/19 14:01 BP 131/52 L 04/27/19 14:01 Pulse Ox 99 04/27/19 14:01 - Orders/Labs/Meds Meds: Medications Discontinued Medications Generic Name Dose Route Start Last Admin Trade Name Gustavoq PRN Reason Stop Dose Admin Sodium Chloride 1,000 mls @ 1,000 mls/hr 04/27/19 14:30 04/27/19 14:28 Normal Saline IV 1,000 mls/hr ASDIRECTED NIRAV Administration Lorazepam 1 mg 04/27/19 14:45 04/27/19 14:49 Ativan IVPUSH 04/27/19 14:46 1 mg ONETIME ONE Administration - Re-Assessments/Exams Free Text/Narrative Re-Assessment/Exam: 04/27/19 17:22 An IV was started and the patient was bolused with 1 L of normal saline. Because of intense anxiety he was given 1 mg of IV Ativan and anesthesia was consulted for a blood patch which was performed. After resting for 1 hour, he sat up and did feel better. Recheck next week if not improving satisfactorily. Departure - Departure Time of Disposition: 17:42 Disposition: Home, Self-Care 01 Clinical Impression: Headache after spinal puncture - Discharge Information Instructions: Epidural Blood Patch for Spinal Headache Referrals: PCP,None [Primary Care Provider] - Forms: ED Department Discharge Care Plan Goals: Continue increasing current activity as tolerated and recheck with your regular provider early next week for follow-up. Sepsis Event Note - Evaluation Sepsis Screening Result: No Definite Risk - Focused Exam Date Exam was Performed: 04/28/19 Time Exam was Performed: 07:17
== END 2019-04-27 17:42 | disposition home or self-care (01) ==
LOC: JP.ED 13:47
DX: G97.1 Other reaction to spinal and lumbar puncture (principal); Z88.5 Allergy status to narcotic agent; Z88.0 Allergy status to penicillin; Y84.4 Aspiration of fluid as the cause of abnormal reaction of the patient, or of later complication, without mention of misadventure at the time of the procedure
CPT/HCPCS: 62273; 96361; 96374; 99283; J2060; J7030

== ENCOUNTER 2019-05-11 20:08 | Emergency (ER) | payer MEDICAID ==
--- NOTE | 2019-05-11 20:41 | EDM.PDOCBH ---
ED HPI GENERAL MEDICAL PROBLEM - General Chief Complaint: Behavioral/Psych Stated Complaint: EVAL Time Seen by Provider: 05/11/19 20:25 Source of Information: Reports: Patient, Family History Limitations: Reports: No Limitations - History of Present Illness INITIAL COMMENTS - FREE TEXT/NARRATIVE: 53-year-old male with chronic anxiety, did start his Lexapro 7 days ago but is having breakthrough mild panic attacks and is wondering if he can be treated with more rapidly acting medications while the Lexapro starts working. His accompanies him and is hopeful he can get treatment. He is very talkative , anxious, but stable. Vitals are stable. Onset: Unknown/Unsure Associated Symptoms: Reports: Other (Intermittent headaches with activity) - Related Data Allergies Allergy/AdvReac Type Severity Reaction Status Date / Time hydrocodone Allergy Itching Verified 04/27/19 14:03 Penicillins Allergy Hives Verified 10/28/17 00:52 Home Meds: Home Meds NK [No Known Home Meds] 10/28/17 [History] Past Medical History HEENT History: Reports: Impaired Vision Cardiovascular History: Reports: Arrhythmia, Other (See Below) Other Cardiovascular History: hereditary paroxysmal "flutter" Musculoskeletal History: Reports: Other (See Below) Other Musculoskeletal History: L elbo pain Neurological History: Reports: Concussion - Infectious Disease History Infectious Disease History: Reports: Mumps - Past Surgical History HEENT Surgical History: Reports: Tonsillectomy Cardiovascular Surgical History: Reports: None Neurological Surgical History: Reports: None Musculoskeletal Surgical History: Reports: Arthroscopic Knee, Shoulder Surgery, Other (See Below) Other Musculoskeletal Surgeries/Procedures:: knee repair, Left elbow spur removed Social & Family History - Family History Cardiac: Reports: Arrhythmia Oncologic: Reports: Breast - Tobacco Use Smoking Status *Q: Never Smoker - Caffeine Use Caffeine Use: Reports: None - Recreational Drug Use Recreational Drug Use: No ED ROS GENERAL - Review of Systems Review Of Systems: See Below Constitutional: Denies: Fever, Chills, Malaise HEENT: Denies: Throat Pain, Vision Change Respiratory: Denies: Shortness of Breath GI/Abdominal: Denies: Nausea, Vomiting Musculoskeletal: Reports: Neck Pain Neurological: Reports: Headache Psychiatric: Reports: Anxiety ED EXAM, BEHAVIORAL HEALTH - Physical Exam Exam: See Below Exam Limited By: No Limitations General Appearance: Alert, Anxious Head: Atraumatic Neck: Supple Respiratory/Chest: No Respiratory Distress, Lungs Clear Cardiovascular: Regular Rate, Rhythm. No: Tachycardia COURSE, BEHAVIORAL HEALTH COMP - Course Vital Signs: Last Vital Signs Temp 96.8 F L 05/11/19 20:24 Pulse 65 05/11/19 20:24 Resp 16 05/11/19 20:24 BP 127/85 05/11/19 20:24 Pulse Ox 95 05/11/19 20:24 Re-Assessment/Re-Exam: Patient was given ten 1 mg doses of Ativan to take every 4-6 hours as needed through the weekend. He will continue his Lexapro, and follow-up with his primary provider next week. Departure - Departure Time of Disposition: 20:49 Disposition: Home, Self-Care 01 Clinical Impression: Anxiety - Discharge Information Instructions: Living With Anxiety Referrals: Angel Brito MD [Primary Care Provider] - Forms: ED Department Discharge Care Plan Goals: Continue your Lexapro as prescribed, use Ativan as discussed for breakthrough anxiety. Recheck with your primary provider next week if not improving satisfactorily. Also recheck if the Ativan is helpful and you need further refills. Sepsis Event Note - Evaluation Sepsis Screening Result: No Definite Risk - Focused Exam Vital Signs: Vital Signs Temp Pulse Resp BP Pulse Ox 05/11/19 20:24 96.8 F L 65 16 127/85 95 Date Exam was Performed: 05/11/19 Time Exam was Performed: 22:40
== END 2019-05-11 20:49 | disposition home or self-care (01) ==
LOC: JP.ED 20:08
CPT/HCPCS: 99283

== ENCOUNTER 2023-12-26 18:58 | Emergency (ER) | payer MEDICAID ==
[2023-12-26 20:09] VITALS: BP 148/104; PULSE 61
== END 2023-12-26 20:39 | disposition home or self-care (01) ==
LOC: JP.ED 18:58
DX: S60.551A Superficial foreign body of right hand, initial encounter (principal); Z88.0 Allergy status to penicillin; Z88.5 Allergy status to narcotic agent; W45.8XXA Other foreign body or object entering through skin, initial encounter
CPT/HCPCS: 99283